=== PATIENT | male | born 1990 | race Two or more races ===

== ENCOUNTER 2020-03-26 17:41 | Emergency (ER) | payer SELFPAY ==
[~2020-03-26] VITALS: Ht 162.6 cm; Wt 63.6 kg
[2020-03-26 18:10] VITALS: BP 138/76
[2020-03-26] MEDS ORDERED: FLUORESCEIN OPHTH TEST STRIP. OD ONE (18:45)
[2020-03-26] MEDS ORDERED: TETRACAINE 0.5% OPHTH SOLUTION 4ML BOTTLE. OD ONE (18:45)
[2020-03-26] MEDS ORDERED: ERYT1OIN6 OP (20:21)
--- NOTE | 2020-03-26 20:21 | PHYS DOC ---
Past Medical History Past Medical History: No Pertinent History (ZAK FRAGOSO APRN) Past Surgical History: No Surgical History (ZAK FRAGOSO APRN) Smoking Status: Current Every Day Smoker Additional Information: 2 CIG/ DAY Alcohol Use: Occasionally Additional Information: 2-3 BEERS/ WEEK (ZAK FRAGOSO APRN) General Adult EDM: Chief Complaint: EYE PROBLEMS HPI: HPI: Patient is a 30 year old male who presents to the ED today complaining of right eye mild pain intermittently since yesterday after he accidentally got hit with a metal piece in the right eye. Patient denies any vision loss. Denies anything specifically exacerbating or relieving the pain. He states the pain is sharp. Instructional Technology Instructor line was used for Frisian (ZAK FRAGOSO APRN) Review of Systems: Review of Systems: Constitutional: Denies fever or chills. [] Eyes: Reports right eye pain denies change in visual acuity. [] Musculoskeletal: Denies back pain or joint pain. [] Integument: Denies rash. [] Neurologic: Denies headache, focal weakness or sensory changes. [] Psychiatric: Denies depression or anxiety. [] (ZAK FRAGOSO APRN) Heart Score: Risk Factors: Risk Factors: DM, Current or recent (<one month) smoker, HTN, HLP, family history of CAD, obesity. Risk Scores: Score 0 - 3: 2.5% MACE over next 6 weeks - Discharge Home Score 4 - 6: 20.3% MACE over next 6 weeks - Admit for Clinical Observation Score 7 - 10: 72.7% MACE over next 6 weeks - Early Invasive Strategies (ZAK FRAGOSO APRN) Current Medications: Current Medications Medications (Trade) Dose Ordered Sig/Elena Start Time Stop Time Status Last Admin Dose Admin Fluorescein Sodium (Ful-Jordyn) 1 strip 1X ONCE 03/26/20 18:45 03/26/20 19:30 DC 03/26/20 19:17 1 STRIP Tetracaine HCl (Tetracaine) 1 drop 1X ONCE 03/26/20 18:45 03/26/20 19:30 DC 03/26/20 19:17 1 DROP (ZAK FRAGOSO APRN) Allergies: Allergies: Allergies Coded Allergies Type Severity Reaction Last Updated Verified No Known Drug Allergies 03/26/20 No (ZAK FRAGOSO APRN) Physical Exam: PE: Constitutional: Well developed, well nourished, no acute distress, non-toxic appearance. [] HENT: Normocephalic, atraumatic, bilateral external ears normal, oropharynx moist, no oral exudates, nose normal. [] Eyes: PERRLA, EOMI, no discharge. [] Right conjunctive is mildly injected. Right eye was examined under Vizcaino lamp. There is tiny corneal abrasion at approximately 1400 position. Skin: Warm, dry, no erythema, no rash. [] Back: No tenderness, no CVA tenderness. [] Extremities: No tenderness, no cyanosis, no clubbing, ROM intact, no edema. [] Neurologic: Alert and oriented X 3, normal motor function, normal sensory function, no focal deficits noted. [] Psychologic: Affect normal, judgement normal, mood normal. [] (ZAK FRAGOSO APRN) Current Patient Data: Vital Signs: Vital Signs Date Time Temp Pulse Resp B/P (MAP) Pulse Ox O2 Delivery O2 Flow Rate FiO2 03/26/20 18:10 98.6 77 19 138/76 (96) 96 Room Air 98.6 (ZAK FRAGOSO APRN) EKG: EKG: [] (ZAK FRAGOSO APRN) Radiology/Procedures: Radiology/Procedures: [] (ZAK FRAGOSO APRN) Course & Med Decision Making: Course & Med Decision Making Pertinent Labs and Imaging studies reviewed. (See chart for details) This is a 30-year-old male patient who presents to the ED today with right eye pain that began yesterday after he got hit with a piece of metal in the eye at work. Right eye exam was noted for corneal abrasion. Tetanus up-to-date. Di scharged with erythromycin. Api Developer provided. (ZAK FRAGOSO APRN) Dragon Disclaimer: Dragon Disclaimer: This electronic medical record was generated, in whole or in part, using a voice recognition dictation system. (ZAK FRAGOSO APRN) Departure Departure Impression: Primary Impression: Corneal abrasion, right Qualified Codes: S05.01XA - Injury of conjunctiva and corneal abrasion without foreign body, right eye, initial encounter Disposition: HOME, SELF-CARE Condition: STABLE Referrals: NO PCP (PCP) ELYSE STALLINGS MD follow up in 1-2 weeks Patient Instructions: Eye - Corneal Abrasion Additional Instructions: Use the eye medicine ordered as prescribed. Follow up with your own doctor or the doctor provided in 1-2 weeks Scripts Erythromycin Base (Erythromycin) 1 Gm Oint...g. 0.5 GM OP Q4HRS W/A, #1 MISC Please apply half an inch to the affected eye every 4 hours while awake for 7 days Prov: ZAK FRAGOSO APRN 03/26/20 Justicifation of Admission Dx: Justifications for Admission: Justification of Admission Dx: N/A (ZAK FRAGOSO APRN) Attending Signature Attending Signature I have reviewed the PA/FRAME NAILER's note and plan of care. I was available for consultation as needed during the patient's visit in the emergency department. I agree with the clinical impression, plan, and disposition. (YADY ALVARENGA DO) ZAK FRAGOSO APRN Mar 26, 2020 20:21 YADY ALVARENGA DO Mar 26, 2020 23:28
== END 2020-03-26 21:00 | disposition home or self-care (01) ==
LOC: ER 17:41
DX: S05.01XA Injury of conjunctiva and corneal abrasion without foreign body, right eye, initial encounter (principal); F17.210 Nicotine dependence, cigarettes, uncomplicated; F10.10 Alcohol abuse, uncomplicated; W22.8XXA Striking against or struck by other objects, initial encounter; Y93.89 Activity, other specified; Y92.89 Other specified places as the place of occurrence of the external cause; Y99.8 Other external cause status
CPT/HCPCS: 99283